=== PATIENT | female | born 1985 ===

== ENCOUNTER 2017-11-16 13:59 | Emergency (ER) | payer MEDICAID ==
[2017-11-16 14:14] VITALS: BMI 23.1
[2017-11-16 14:16] VITALS: BP 95/58; PULSE 80; RESP 18; TEMP 98.7; O2SAT 99
--- NOTE | 2017-11-16 14:42 | ED PDOC ---
HPI: General Adult Time Seen by Provider: 11/16/17 14:40 Chief Complaint (Nursing): Headache Chief Complaint (Provider): VOMITING History Per: Patient (32 Y/O FEMALE HERE WITH COMPLAINT OF NAUSEA/HEARTBURN/ ONE EPISODE OF VOMITING. DENIES ANY FEVERS/CHILLS/URI/COUGH. LAST MENSTRUAL CYCLE 09/08. DENIES ANY VAGINAL BLEEDING/DENIES ANY CURRENT ABD PAIN.) Past Medical History Reviewed: Historical Data, Nursing Documentation, Vital Signs Vital Signs: Last Vital Signs Temp 98.7 F 11/16/17 14:14 Pulse 80 11/16/17 14:14 Resp 18 11/16/17 14:14 BP 95/58 L 11/16/17 14:14 Pulse Ox 99 11/16/17 14:46 - Family History Family History: States: No Known Family Hx - Home Medications Home Medications: Ambulatory Orders Medication Instructions Recorded Nitrofurantoin Macrocrystals 100 mg PO BID #14 cap 11/16/17 [Macrobid] Ondansetron ODT [Zofran ODT] 4 mg PO Q8 PRN #12 odt 11/16/17 Multivit/Folic Acid/I 1 tab PO DAILY #30 tab 11/16/17 [ Plus] - Allergies Allergies/Adverse Reactions: Allergies Allergy/AdvReac Type Severity Reaction Status Date / Time No Known Allergies Allergy Verified 11/16/17 14:20 Review of Systems ROS Statement: Except As Marked, All Systems Reviewed And Found Negative Physical Exam - Reviewed Nursing Documentation Reviewed: Yes Vital Signs Reviewed: Yes - Physical Exam Appears: Positive for: Well, Non-toxic, No Acute Distress Head Exam: Positive for: ATRAUMATIC, NORMAL INSPECTION, NORMOCEPHALIC Skin: Positive for: Normal Color, Warm, DRY Eye Exam: Positive for: EOMI, Normal appearance, PERRL ENT: Positive for: Normal ENT Inspection Neck: Positive for: Normal, Painless ROM Cardiovascular/Chest: Positive for: Regular Rate, Rhythm Respiratory: Positive for: CNT, Normal Breath Sounds Gastrointestinal/Abdominal: Positive for: Normal Exam, Soft Back: Positive for: Normal Inspection Extremity: Positive for: Normal ROM Neurologic/Psych: Positive for: Alert, Oriented - Laboratory Results Urine POC: Positive Urine dip results: Positive for: Leukocyte Esterase. Negative for: Blood, Nitrate, Ketones, Glucose, Bilirubin, Protein - ECG O2 Sat by Pulse Oximetry: 99 - Progress ED Course And Treament: PATIENT DOES NOT WANT ANY IV FLUIDS/MEDICATION FOR NAUSEA AT THIS TIME. STATES SHE HAS BEEN ABLE TO DRINK FLUIDS TODAY AND ONLY VOMITED ONCE. REQUESTS HELP CONNECTING WITH CARE Disposition - Clinical Impression Clinical Impression: , UTI (urinary tract infection) - Patient ED Disposition Is Patient to be Admitted: No - Disposition [facility] [Outside] Disposition: Routine/Home Disposition Time: 14:43 Condition: STABLE Prescriptions: Nitrofurantoin Macrocrystals [Macrobid] 100 mg PO BID #14 cap Ondansetron ODT [Zofran ODT] 4 mg PO Q8 PRN #12 odt PRN Reason: Nausea/Vomiting Multivit/Folic Acid/I [ Plus] 1 tab PO DAILY #30 tab Instructions: Urinary Tract Infections in Adults, Care, - The First Month
== END 2017-11-16 15:11 | disposition home or self-care (01) ==
LOC: H.ER 13:59
DX: O23.40 Unspecified infection of urinary tract in pregnancy, unspecified trimester (principal)